=== PATIENT | male | born 1985 | race Caucasian/White ===

== ENCOUNTER 2022-01-17 00:15 | Emergency (ER) | payer OTHER, SELFPAY ==
[2022-01-17] VITALS (10 sets, daily range): BP systolic 127; BP diastolic 98; PULSE 72–104; RESP 12–19; O2SAT 84–100
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
[2022-01-17 04:01] LABS: Glucose Point of Care 101 mg/dl (65-105)
--- NOTE | 2022-01-17 04:55 | PC.NURSE ---
Patient waiting for a ride home. Left in room for continued monitoring instead of being sent to waiting room.
--- NOTE | 2022-01-17 06:30 | PC.NURSE ---
Pt exited ER before RN could complete discharge and remove IV. Al BASS made aware.
--- NOTE | 2022-01-17 07:50 | ECG_ITS ---
Measurements Intervals [place] Rate: 101 P: 66 MI: 180 QRS: 64 QRSD: 96 T: 59 QT: 347 QTc: 451 Interpretive Statements SINUS TACHYCARDIA BORDERLINE ECG Electronically Signed On 01-17-2022 8:59:52 CDT by Rick Lucero D.O.
== END 2022-01-18 04:35 | disposition left against medical advice (07) ==
PROVIDERS: Emergency Provider Emergency Medicine
DX: T40.411A Poisoning by fentanyl or fentanyl analogs, accidental (unintentional), initial encounter (principal); R00.0 Tachycardia, unspecified; M50.322 Other cervical disc degeneration at C5-C6 level; M16.0 Bilateral primary osteoarthritis of hip; V47.5XXA Car driver injured in collision with fixed or stationary object in traffic accident, initial encounter
CPT/HCPCS: 70450; 71045; 72125; 72170; 82948; 93005; 99284

== ENCOUNTER 2023-01-07 17:49 | Emergency (ER) | payer OTHER, SELFPAY ==
[2023-01-07 17:50] VITALS: BP 135/91; PULSE 92; TEMP 36.7; O2SAT 96
--- NOTE | 2023-01-07 18:09 | ED.LOWEXIN ---
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 Injury: Right: ankle ( erythema right lower leg and ankle with warmth) Related Data Allergies Allergy/AdvReac Type Severity Reaction Status Date / Time No Known Allergies Allergy Mild Verified 01/07/23 17:58 Review of Systems Review of Systems: All systems reviewed & are unremarkable except as noted in HPI and below PMFSH Past Medical History Medical History Opiate use Social History Social History Substance use: current Exam Const: General: no acute distress Nutritional Appearance: well nourished Orientation/consciousness: patient oriented x3 Limitations: no limitations HENMT: Head: normal to inspection Eyes: Conjunctivae: conjunctivae normal Neck: Neck: normal visual inspection Chest: Chest palpation & inspection: normal inspection of the chest Resp: Effort & Inspection: normal respiratory effort Cardio: Rate: regular rate Rhythm: regular rhythm GI: GI Palp: Yes Soft to palpation Skin: Other: Patch of erythema right lateral ankle area that is warm to touch approximately 4cm in diameter. Extrem: General: normal to inspection Psych: Mental Status: mental status grossly normal Affect: normal affect Course Course Emergency Course: Patient has a patch of erythema that is warm to touch consistent with cellulitis and will receive a dose of ceftriaxone 1g IM. Vital Signs Vital signs: Vital Signs Temperature 36.7 C 01/07/23 17:50 Pulse Rate 92 01/07/23 17:50 Blood Pressure 135/91 H 01/07/23 17:50 Pulse Oximetry 96 01/07/23 17:50 Oxygen Delivery Room Air 01/07/23 17:50 Temperature 36.7 C 01/07/23 17:50 Pulse Rate 92 01/07/23 17:50 Blood Pressure 135/91 H 01/07/23 17:50 Pulse Oximetry 96 01/07/23 17:50 Oxygen Delivery Room Air 01/07/23 17:50 Critical Care Time Critical Care Time Critical Care Time: No Discharge Plan Discharge Clinical Impression: Cellulitis Patient Disposition: Home, Self-Care Condition: Stable Instructions: Antibiotic Form, Cellulitis (ED) Additional Instructions: can take Tylenol or Motrin for pain or tenderness and take antibiotics as prescribed and follow up with primary if symptoms persist or worsen. Prescriptions: New amoxicillin-pot clavulanate [Augmentin] 500-125 mg tablet 1 tablet PO TID Qty: 20 0RF No Action naloxone 4 mg/actuation spray,non-aerosol 4 mg intranasal Q2-3M PRN (Reason: opioid overdose) Qty: 2 0RF Rx Instructions: spray 1 dose into nostril; spray 2nd dose in other nostril, call 911 Follow-up/Referrals: UNKNOWN,DOCTOR [Primary Care Provider] - Time of Disposition: 18:13
[2023-01-07] MEDS: cefTRIAXone 1 GM, LIDOCAINE HCL 1% LOCAL INJ 2.1 ML IM (18:15)
== END 2023-01-07 18:30 | disposition home or self-care (01) ==
LOC: CHSED 18:26
PROVIDERS: Emergency Provider Emergency Medicine
DX: L03.115 Cellulitis of right lower limb (principal); T63.301A Toxic effect of unspecified spider venom, accidental (unintentional), initial encounter
CPT/HCPCS: 96372; 99283; J0696

== ENCOUNTER 2023-04-06 19:54 | Emergency (ER) | payer OTHER, SELFPAY ==
[2023-04-06 19:58] VITALS: BP 116/84; PULSE 99; RESP 18; TEMP 36.7; O2SAT 98
--- NOTE | 2023-04-06 19:59 | ED.SKABFB ---
HPI - Skin/Abscess/Foreign Bdy General Chief complaint: Skin/Abscess/Foreign Body Stated complaint: skin issues Time Seen by Provider: 04/06/23 19:59 Source: patient and RN notes reviewed Mode of arrival: ambulatory Limitations: no limitations History of Present Illness HPI narrative: patient states he has 2 scabbed areas on his left buttock that had been there for about 2 weeks. They are nontender. He does know how he got them. He was concerned about possibility of ringworm. He also has an area on his right toe 4th digit on the lateral aspect. MD complaint: insect bite/sting Onset (ago): week(s) (2) Location: buttocks (left) and R foot ( 4th digit) Severity: moderate Quality: burning and dull Pain Consistency: constant Relieving factors: none Exacerbating factors: movement Context: none Associated symptoms: denies other symptoms Treatments prior to arrival: none Related Data Allergies Allergy/AdvReac Type Severity Reaction Status Date / Time No Known Allergies Allergy Mild Verified 04/06/23 19:56 Review of Systems Review of Systems: All systems reviewed & are unremarkable except as noted in HPI and below PMFSH Past Medical History Medical History Opiate use Social History Social History Substance use: current Exam Const: General: healthy appearing, no acute distress and alert Nutritional Appearance: well nourished Orientation/consciousness: patient oriented x3 Limitations: no limitations HENMT: Head: normal to inspection Ears: external ears normal Face/Nose/Sinus: Normal external nose present Face and sinus: normal facial exam Mouth: Yes moist mucous membranes Eyes: Conjunctivae: conjunctivae normal Pupils: Equal, round and reactive pupils present EOM: EOMs intact bilaterally Neck: Neck: normal visual inspection Resp: Effort & Inspection: normal respiratory effort Auscultation: clear to auscultation bilaterally Cardio: Rate: regular rate Rhythm: regular rhythm GI: Auscultation: normal bowel sounds Back/Spine/Pelvis: Cervical Spine: cervical ROM normal Thoracic/Lumbar Spine: thoraco-lumbar ROM normal Skin: General skin exam: normal color Lesions: lesion noted callus right 4th toe lateral size (.5 cm), consistency firm and tender, scabbed X2 medial left buttock size (.3 cm) and consistency (scabbed); nontender Rashes: no rashes Neuro: General: patient oriented x3, moves all extremities, no focal motor deficits and CN's II-XI intact bilaterally Speech: normal speech Gait exam (Neuro): Normal gait present Extrem: General: normal to inspection and no clubbing, cyanosis or edema Psych: Mental Status: mental status grossly normal Affect: normal affect Attitude: cooperative MDM - Skin/Abscess/Foreign Bdy Differential Diagnosis Differential diagnosis: Likely other ( Callus, cellulitis, ringworm ruled out by exam, insect bites, excoriations) Discharge Plan Discharge Clinical Impression: Callus between toes Insect bites Qualifiers: Encounter type: initial encounter Laterality: left Patient Disposition: Home, Self-Care Condition: Stable Instructions: Insect Bite or Sting (ED) Additional Instructions: Obtain a toe sleeve from the pharmacy and wear that continuously until the callus has resolved Prescriptions: No Action naloxone 4 mg/actuation spray,non-aerosol 4 mg intranasal Q2-3M PRN (Reason: opioid overdose) Qty: 2 0RF Rx Instructions: spray 1 dose into nostril; spray 2nd dose in other nostril, call 911 Follow-up/Referrals: UNKNOWN,DOCTOR [Primary Care Provider] - Time of Disposition: 20:07
[2023-04-06 20:19] VITALS: BP 116/84; PULSE 99; RESP 18; TEMP 36.7; O2SAT 98
== END 2023-04-06 20:21 | disposition home or self-care (01) ==
PROVIDERS: Emergency Provider Emergency Medicine
DX: L84 Corns and callosities (principal); T14.8XXA Other injury of unspecified body region, initial encounter; W57.XXXA Bitten or stung by nonvenomous insect and other nonvenomous arthropods, initial encounter
CPT/HCPCS: 99281

== ENCOUNTER 2023-09-15 22:06 | Emergency (ER) | payer OTHER, SELFPAY ==
[2023-09-15] VITALS (12 sets, daily range): BP systolic 141–149; BP diastolic 81–101; PULSE 82–102; RESP 20–47; TEMP 36.6; O2SAT 98–100
--- NOTE | ~2023-09-15 | XR_ITS ---
EXAMINATION: XR chest 1V portable INDICATION: Overdose, unresponsive TECHNIQUE: Portable AP chest at 2316 hours COMPARISON: 01/17/2022 FINDINGS: There is mild atelectasis of the right lung base. No pleural effusion or pneumothorax. The cardiomediastinal silhouette is normal. The chin projects over the upper thorax. IMPRESSION: 1. Mild atelectasis of the right lung base. Reviewed, dictated and finalized at location F. [employer]AR[employer] CONTACT PRINTER
--- NOTE | ~2023-09-15 | CT_ITS ---
EXAMINATION: CT brain wo con INDICATION: Altered mental status, overdose COMPARISON: 01/17/2022 TECHNIQUE: Standard unenhanced head CT. The dose-length product (DLP) was 756.67 mGy-cm. The mA was a djusted according to patient size. Iterative reconstruction technique was employed. FINDINGS: No intracranial hemorrhage, acute infarction, or abnormal mass lesion. The ventricles are n ormal. No abnormal mass effect or midline shift. The [place]-white matter differentiation is normal. The basal cisterns are patent. The orbits are normal. There is mild mucosal thickening of the paranasal sinuses. IMPRESSION: 1. No acute intracranial abnormality. Reviewed, dictated and finalized at location F. [employer] [facility] [employer]
[2023-09-15] MEDS: NALOXONE HCL INJ 2 MG/2 ML AMP 0.4 MG NASAL (22:09)
--- NOTE | 2023-09-15 22:14 | ECG_ITS ---
Measurements Intervals [place] Rate: 94 P: 53 DC: 178 QRS: 59 QRSD: 101 T: 44 QT: 361 QTc: 453 Interpretive Statements SINUS RHYTHM COMPARED TO ECG 01/17/2022 00:17:12 SINUS RHYTHM NOW PRESENT Electronically Signed On 09-16-2023 15:24:31 [employer] WINDER MACHINE by Jannette Ojeda M.D.
--- NOTE | 2023-09-15 22:14 | ED.OVERDOSE ---
HPI - Overdose General Chief Complaint: Overdose Stated Complaint: UNRESPONSIVE/OVERDOSE Time Seen by Provider: 09/15/23 22:13 Source: patient and police Mode of arrival: wheelchair Limitations: no limitations History of Present Illness HPI Narrative: 38-year-old male with a history of fentanyl overdose, was picked up by the police when he lays slumped over in his car. The patient was placed in the back seat of the police car. While he was in the backseat he ingested an unknown amount of pills. Per police they appear to be methamphetamine and cocaine. Subsequently en route to the hospital the patient was noted to -- unresponsive to verbal commands -- agonal breathing the ER staff went out to get the patient from the police car. The patient was noted to be unresponsive to verbal commands. Patient had a good palpable pulse and respiratory rate of around 15. The patient received 0.4 mg of nasal Narcan followed by 2 mg of IV Narcan with improvement in his mental status. He subsequently had multiple episodes of vomiting. The patient is currently noted to be hemodynamically stable and saturating 100% on room air. complaint: intentional overdose Onset (ago): minute(s) ( Last 15-30 minutes) Intent: wanted to escape ( Wanted to escape going to longterm.) Treatments Prior to Arrival: none Related Data Home Medications Medication Instructions Recorded Confirmed aripiprazole 2 mg tablet 2 mg PO DAILY 09/16/23 09/16/23 Allergies Allergy/AdvReac Type Severity Reaction Status Date / Time No Known Allergies Allergy Mild Verified 04/06/23 19:56 Review of Systems Review of Systems: Patient is unable to answer questions. ROS unobtainable: Yes unobtainable due to mental status and other ( 6 hours after arriving to the ED the patient was he denied any symptoms) Constitutional: Constitutional: Reports as per HPI Eyes: Eyes: Reports as per HPI [facility] Past Medical History Medical History Opiate use Overdose of fentanyl Social History Social History Substance use: current Exam Const: Nutritional Appearance: well nourished Limitations: altered mental status Other: Patient is unresponsive to verbal commands. He withdraws to painful stimuli. Patient is retching and vomiting yellow material after getting IV Narcan. HENMT: Head: normal to inspection Ears: external ears normal Face/Nose/Sinus: Normal external nose present Face and sinus: normal facial exam Mouth: Yes Normal oral and palatal mucosa present Throat: posterior oropharynx normal Eyes: Conjunctivae: conjunctivae normal Pupils: Equal, round and reactive pupils present EOM: EOMs intact bilaterally Direct Ophthalmoscopy: no photophobia Neck: Neck: normal visual inspection, no lymphadenopathy and no meningeal signs Chest: Chest palpation & inspection: normal inspection of the chest Resp: Effort & Inspection: normal respiratory effort Auscultation: diminished lung sounds Cardio: Rate: regular rate Rhythm: regular rhythm GI: GI Palp: Yes Soft to palpation Auscultation: normal bowel sounds Other: No tenderness/rigidity / rebound. : General: Yes no CVA tenderness Back/Spine/Pelvis: Back: no CVA tenderness Skin: General skin exam: normal color Rashes: no rashes Wounds: no wounds Neuro: General: moves all extremities, no meningeal signs and no focal motor deficits Other: Decreased responsiveness. Unresponsive to verbal commands. Withdraws to painful stimuli. Extrem: Other: bluish discoloration of bilateral fingers right lower leg/ ankle swelling. Psych: Mental Status: mental status grossly normal Attitude: cooperative Course Course Emergency Course: unresponsiveness secondary to intentional drug overdose respiratory failure secondary with agonal breathing which respon
[2023-09-15] MEDS: NALOXONE HCL INJ 2 MG/2 ML AMP IV PUSH (22:18)
[2023-09-15] MEDS: LACTATED RINGERS 1,000 ML 999 ML IV CONT (22:20)
--- NOTE | 2023-09-15 22:30 | PC.NURSE ---
After pt given Narcan via IV, he started to become slightly more responsive and shivering and talking nonstop but has nonsensicle speech, He is still unable to follow any commands. Pt then started vomiting and and spitting phlegm in air and is unable to comprehend instruction. Pt sitting upright vomiting in bag. VSS, monitor shows NSR.
[2023-09-15 22:41] LABS: Base Excess ABG 0.1 mmol/L (0-2); HCO3 ABG 21.9 mmol/L (23-29); Oxygen Content ABG 18.8 %vol (16.0-22.0); Oxygen Saturation ABG 97.5 % (95-97); Oxyhemoglobin 96.8 % (94-100); PCO2 ABG 28.2 mmHg (35-45); PO2 ABG 101.8 mmHg (80-90); Total Hemoglobin 13.7 g/dL (12.0-18.0); pH ABG 7.51 (7.35-7.45)
[2023-09-15 22:43] LABS: Basophils Absolute Auto 0.04 K/mm3 (0.00-0.10); Basophils Percent Auto 0.4 % (0.0-1.0); Eosinophils Absolute Auto 0.22 K/mm3 (0.02-0.50); Eosinophils Percent Auto 2.3 % (1.0-6.0); Hematocrit 42.4 % (40.0-54.0); Hemoglobin 13.4 g/dL (14.0-18.0); Immature Granulocyte Absolute 0.02 K/mm3 (0.00-0.00); Immature Granulocyte Percent A 0.2 % (0.0-0.0); Lymphocytes Absolute Auto 2.33 K/mm3 (1.10-4.50); Lymphocytes Percent Auto 24.3 % (18.0-42.0); Mean Corpuscular HGB Conc 31.6 g/dL (32.0-36.0); Mean Corpuscular Hemoglobin 29.3 pg (27.0-31.0); Mean Corpuscular Volume 92.6 fL (78.0-102.0); Mean Platelet Volume 9.4 fl (8.7-11.0); Monocytes Absolute Auto 0.53 K/mm3 (0.10-0.90); Monocytes Percent Auto 5.5 % (2.0-11.0); Neutrophils Absolute Auto 6.5 K/mm3 (1.7-7.2); Neutrophils Percent Auto 67.3 % (50.0-70.0); Platelet Count Result 347 K/mm3 (150-420); Red Blood Count 4.58 M/mm3 (4.70-6.10); Red Cell Distribution Width 12.3 % (11.6-14.4); White Blood Count 9.6 K/mm3 (4.8-10.8)
[2023-09-15 22:45] LABS: Device ROOM AIR; Modified Allen's Test Pass; Site Drawn LEFT RADIAL
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
[2023-09-15 23:03] LABS: Lactic Acid Reflex 3.3 mmol/L (0.4-2.0)
[2023-09-15 23:17] LABS: Alanine Aminotransferase 34 U/L (16-63); Albumin Level 3.6 g/dL (3.4-5.0); Alkaline Phosphatase 116 U/L (46-116); Anion Gap 13 mmol/L (8-16); Aspartate Amino Transferase 31 U/L (15-37); Bilirubin,Total 0.5 mg/dL (0.00-1.00); Blood Urea Nitrogen 19 mg/dL (7-18); Calcium 8.8 mg/dL (8.5-10.1); Carbon Dioxide 22 mmol/L (21-32); Chloride 103 mmol/L (98-108); Creatine Kinase 315 U/L (39-308); Estimated CRCL calculation 98 ml/min; Estimated Glomerular Filt Rate > 60; Glucose 87 mg/dL (70-99); Lipase 25 U/L (16-77); Osmolality Calculated 287 mOsm/kg (285-295); Potassium 4.2 mmol/L (3.5-5.1); Salicylate 1.8 mg/dL (2.8-20.0); Sodium 138 mmol/L (136-145); Total Protein 7.7 g/dL (6.4-8.2)
[2023-09-15 23:18] LABS: Troponin I < 4.0 ng/L (0.00-60.4)
[2023-09-15 23:19] LABS: Acetaminophen < 2 ug/mL (10-30); Ethanol < 3 mg/dL (0-6)
[2023-09-15 23:33] LABS: Influenza A QL RT-PCR Negative (Negative); Influenza B QL RT-PCR Negative (Negative); RSV RNA, RT-PCR Negative (Negative); SARS-CoV-2 RNA PCR Negative (Negative)
--- NOTE | 2023-09-15 23:35 | PC.NURSE ---
Pt is now alert p arrival back to ER [address] Pt VSS, upon stating to pt that a montes de oca cath is going to be inserted, he is able to refuse and hold urinal per self, but won['t answer questions directly. Pt is making verbal sense and has clearer speech at this time.
--- NOTE | 2023-09-15 23:46 | PC.NURSE ---
Poison control contacted per ERP request. Pt at this time remains alert, lethargic, attempting to urinate using urinal, VSS. Monistor shows NSR. Info and orders obtained from [facility] and given to ERP.
[2023-09-16] VITALS (31 sets, daily range): BP systolic 118–148; BP diastolic 73–97; PULSE 82–103; RESP 12–24; TEMP 36.6; O2SAT 90–100
--- NOTE | 2023-09-16 00:15 | PC.NURSE ---
POC discussed c pt, he will nod his head to questions but will not answer directly, per poison control pt will be monitored for next 6 hrs overnight and have labs redrawn in AM. VSS, monitor shows NSR. Lights dimmed, call dowell at pt side.
[2023-09-16 00:31] LABS: Appearance Urine Clear (Clear); Bilirubin Urine Negative (Negative); Blood Urine Negative (Negative); Color Urine Yellow (Yellow); Glucose Urine UA Negative (Negative); Ketones Urine Negative (Negative); Leukocyte Esterase Ur Negative LEU/UL (Negative); Nitrate Urine Negative (Negative); Protein Urine Negative (Negative)
[2023-09-16 00:32] LABS: Add Urine Microscopic? NO
[2023-09-16] MEDS: LACTATED RINGERS 1,000 ML 150 ML IV CONT (00:32)
[2023-09-16 00:41] LABS: Amphetamine Screen Urine Positive (Negative); Barbiturate Screen Urine Negative (Negative); Benzodiazepines Screen Urine Negative (Negative); Cannabinoid Screen Urine Negative (Negative); Cocaine Screen Urine Negative (Negative); Methadone Screen Urine Negative (Negative); Opiate Screen Urine Negative (Negative); Phencyclidine Screen Urine Negative (Negative)
--- NOTE | 2023-09-16 01:30 | PC.NURSE ---
Pt sleeping but awakens easily to verbal, cough present upon awakening and pt able to clear secretions. Asked if pt wanted a drink and he denied. VSS, continuing to monitor.
[2023-09-16 01:40] LABS: Reflex Lactic Acid Yes or No Add Lactic
--- NOTE | 2023-09-16 02:30 | PC.NURSE ---
Continuing to monitor, pt sleeping, RR even and nonlabored, VSS, monitor shows NSR.
--- NOTE | 2023-09-16 03:30 | PC.NURSE ---
Continuing to monitor, pt sleeping and resting comfortably, pt will open eyes to verbal and mumble, will attempt to follow commands. Pt given sips of water c straw s difficulty. VSS, monitor showing NSR.
--- NOTE | 2023-09-16 04:38 | PC.NURSE ---
Pt awakens to voice and will mumble and nod head yes and no to questions. Pt turns self side to side when commanded and instructed. Pt denies wanting anything to eat or drink at this time, lights dimmed and continuing to monitor. VSS.
--- NOTE | 2023-09-16 05:30 | PC.NURSE ---
Blood redraw per lab as per order, pt awakens with verbal commands and will follow commands when prompted, VSS, continuing to monitor.
[2023-09-16 05:59] LABS: Anion Gap 14 mmol/L (8-16); Blood Urea Nitrogen 16 mg/dL (7-18); Calcium 8.2 mg/dL (8.5-10.1); Carbon Dioxide 21 mmol/L (21-32); Chloride 103 mmol/L (98-108); Creatine Kinase 219 U/L (39-308); Estimated CRCL calculation 127 ml/min; Estimated Glomerular Filt Rate > 60; Glucose 103 mg/dL (70-99); Magnesium 1.9 mg/dL (1.8-2.4); Osmolality Calculated 287 mOsm/kg (285-295); Potassium 4.5 mmol/L (3.5-5.1); Sodium 138 mmol/L (136-145)
--- NOTE | 2023-09-16 06:00 | ECG_ITS ---
Measurements Intervals [place] Rate: 86 P: 61 NV: 178 QRS: 57 QRSD: 95 T: 41 QT: 374 QTc: 449 Interpretive Statements SINUS RHYTHM COMPARED TO ECG 09/15/2023 22:14:16 NO SIGNIFICANT CHANGES Electronically Signed On 09-16-2023 15:24:45 FISHER EEL SPEAR by Jannette Ojeda M.D.
[2023-09-16 06:04] LABS: Lactic Acid Reflex 0.5 mmol/L (0.4-2.0)
--- NOTE | 2023-09-16 06:21 | PC.NURSE ---
Pt sitting up at bedside c table in front of him, drinking O.J. and eating jello at this time. He is alert and able to answer questions appropriately. He requests his mom be called for ride home if d/c'd.
[2023-09-16] MEDS: NICOTINE (*PBKC) 21 MG PATCH 1 PATCH TRANSDERM (06:44)
--- NOTE | 2023-09-16 06:58 | PC.NURSE ---
Pt spoke c TRACEE Rosario and is agreeable to staying and talking c [facility] counselor. Pt denies any SI/HI at this time, but explained to pt about amt of pills taken last noc. and the way he presented that there is need to be evaluated. Pt medically cleared, stable and will await to speak c someone later. Pt wanting lights dimmed, call dowell at side.
--- NOTE | 2023-09-16 08:35 | PC.NURSE ---
0710 REPORT ON PT FROM JOLIE MORENO. RESUMED CARE AT THIS TIME. 0720 PT RESTING PER COT, CALL [facility] IN REACH. NO NEEDS AT THIS TIME. 0730 CIGARETTES AND PERSONAL NARCAN PLACED IN LOCKED MEDICATION ROOM.
--- NOTE | 2023-09-16 08:37 | PC.NURSE ---
0736 PT REMOVED DATASCOPE MONITORING DEVICE, USING CELL PHONE IN ROOM. 0739 CALL PLACED TO [facility] FOR EVAL. PT INFORMED OF PSYCH EVAL AND [facility]. PT STATED I DONT NEED THAT . 0755 NOTED PT TO NOT BE IN ROOM, BATHROOM , HALLWAY CHECKED. CHECKED [facility] . PT NOT FOUND. 0800 ATTEMPTED TO CALL PT CELL NUMBER, GOES TO VOICE MAIL, MESSAGE LEFT TO RETURN FOR IV REMOVAL. ATTEMPTED TO CALL SIGNIFICANT OTHER PHONE DOES NOT ACCEPT PHONE CALLS. CLAIRE BASS CALLED TO NOTIFY OF PT ELOPEMENT AND PT STILL HAS IV IN LEFT HAND. PT NEEDS TO RETURN FOR REMOVAL. 08 CALL PLACED TO [facility], SPOKE WITH [place], STATED VEGETABLE SPECKER WILL NOT BE IN OFFICE UNTIL LATER TODAY. 808 CALL PLACED TO [facility] DEPT. SPOKE WITH AZEEMUTLeela RIOS. WILL SPEAK WITH ON DUTY AND CALL BACK. 822 CALL FROM [facility] DEPUTY. STATED WILL GO OUT TO RESIDENCE AND INFORM PT OF NEED TO RETURN. INFORMED DEPUTY IV SHOULD BE IN LEFT HAND. IF PT HAS REMOVED FROM LEFT HAND ON OWN, CALL BACK TO ER AND INFORM STAFF. STATED WILL CALL IF PT LOCATED. ALSO PT HAS MONITORING DEVICE WIRES IF STILL HAS PLEASE RETURN TO ER. AWAITING CALL BACK FROM DEPUTY RIOS.
--- NOTE | 2023-09-16 09:31 | PC.NURSE ---
CALL FROM DEPUTY RIOS, NO CONTACT WITH PT. ATTEMPTED AGAIN TO CALL NUMBER ON FACESHEET , NO ANSWER.
--- NOTE | 2023-09-16 18:33 | PC.NURSE ---
1630 pt arrives here with derrick delator[employer] officer, iv removed from left hand. catheter intact. no active bleeding, dressing applied. officer stated data monitor wires in pt home , will get and return to er.
== END 2023-09-16 08:00 | disposition left against medical advice (07) ==
PROVIDERS: Emergency Provider Internal Medicine Critical Care Medicine
DX: J96.00 Acute respiratory failure, unspecified whether with hypoxia or hypercapnia (principal); R40.4 Transient alteration of awareness; T50.902A Poisoning by unspecified drugs, medicaments and biological substances, intentional self-harm, initial encounter; F15.10 Other stimulant abuse, uncomplicated; Z79.899 Other long term (current) drug therapy
CPT/HCPCS: 36415; 36600; 70450; 71045; 80048; 80053; 80307; 81003; 82550; 82805; 83605; 83690; 83735; 84484; 85025; 87637; 93005; 96360; 96361; 99282; 99284; A9270; J2310; J7120